=== PATIENT | female | born 1970 | race Two or more races ===

== ENCOUNTER → 2024-10-10 | Outpatient (CLI) | payer OTHER, SELFPAY ==
--- NOTE | 2024-10-10 09:29 | XR_ITS ---
Examination: Lumbar spine 3 views TECHNIQUE: AP lateral coned lateral lower lumbar spine 3 views Date and time: October 10, 2024 1040 hours INDICATIONS: Patient fell 2 months ago with injury to lower back, lower back pain. FINDINGS: 2 mm anterolisthesis L4 on L5 No lumbar fracture Moderate to advanced degenerative disc disease L5-S1 IMPRESSION: Moderate to advanced degenerative disc disease L5-S1
== END | disposition home or self-care (01) ==
LOC: CDIM 09:15
PROVIDERS: PCP Nurse Practitioner Family; Referring Provider Family Medicine; Visit Provider Family Medicine
DX: M51.370 Other intervertebral disc degeneration, lumbosacral region with discogenic back pain only (principal)
CPT/HCPCS: 72100